=== PATIENT | female | born 1985 | race African-American/Black ===

== ENCOUNTER 2019-03-09 15:58 | Emergency (ER) | payer SELFPAY, OTHER | END 2019-03-09 16:19 | disposition home or self-care (01) | LOC: E/R 16:19 | DX: T20.15XA Burn of first degree of scalp [any part], initial encounter (principal); X19.XXXA Contact with other heat and hot substances, initial encounter; Y92.9 Unspecified place or not applicable | CPT/HCPCS: 99282 ==